=== PATIENT | male | born 1950 | race Caucasian/White ===

== ENCOUNTER → 2018-05-29 | Day surgery (SDC) | payer MEDICARE, OTHER ==
[2018-05-28 12:21] LABS: BASOPHILS # (AUTO) 0.1 (0.0-0.1); BASOPHILS % 0.6 % (0.0-1.0); EOSINOPHILS # (AUTO) 0.3 (0.0-0.4); EOSINOPHILS % 3.6 % (0.0-6.0); HEMATOCRIT 40.2 % (38.2-49.6); HEMOGLOBIN 13.5 g/dL (14.0-18.0); LYMPHOCYTES # (AUTO) 3.6 (1.0-3.2); LYMPHOCYTES % 40.5 % (18.0-39.1); MEAN CORPUSCULAR HEMOGLOBIN 31.4 pg (28-32); MEAN CORPUSCULAR HGB CONC 33.6 g/dL (31-35); MEAN CORPUSCULAR VOLUME 93.5 fL (81-99); MONOCYTES # (AUTO) 0.7 (0.2-0.8); MONOCYTES % 8.1 % (4.4-11.3); NEUTROPHILS # (AUTO) 4.2 (2.1-6.9); PLATELET COUNT 265 x10e3/uL (140-360); RED CELL DISTRIBUTION WIDTH 14.2 % (11.7-14.4)
[~2018-05-29] MED LIST: ACEBUTOLOL HCL200 MG PO; ACTOS15 MG PO; ALLEGRA ALLERG180 MG PO; ALLOPURINOL300 MG PO; ASPIR 8181 MG PO; AZELASTINE HCL6 ML; CRESTOR10 MG PO; DEXILANT60 MG PO; DEXTROSE 5% 250ML 250 ML IV ONE; DYMISTA NASAL S23 GM; FENTANYL CITRATE/PF 100MCG/2 ML INJ ONE; FLOMAX0.4 MG PO; FLUTICASONE PRO16 GM; LIDOCAINE HCL 2% LOCAL INJ 5 ML SDV VIAL INJ ONE; METFORMIN HCL500 MG PO; MIDAZOLAM HCL 2 MG/2 ML VIAL ONE; NEXIUM20 MG PO; NORVASC5 MG PO; PLAVIX75 MG PO; PRILOSEC OTC20 MG PO; PROPOFOL IV EMULSION 10 MG/ML 20 ML VIAL ONE; SUCRALFATE1 GM PO; TRICOR145 MG PO; XANAX2 MG PO; ZYRTEC10 MG PO
--- NOTE | 2018-05-29 15:45 | Operative Report ---
DATE OF PROCEDURE: May 29, 2018 REFERRING PHYSICIAN: Dr. Macario Grimm PROCEDURE PERFORMED: Esophagogastroduodenoscopy with biopsies. INDICATIONS FOR EGD: Upper abdominal pain. MEDICATION: Patient was done under MAC. Please see anesthesiologist's note. PROCEDURE: With the patient in the left lateral decubitus position, the flexible fiberoptic Olympus gastroscope was introduced into the esophagus under direct visualization without any difficulty. There was some patchy erythema noted in the distal esophagus. The scope was then advanced with ease into the stomach. Mucosa overlying the antrum and the body revealed some patchy erythema and mild to moderate edema, and biopsies were obtained and sent to stain for H. pylori. Multiple hyperplastic-appearing polyps were noted in the antrum and the body, and some were partially excised with cold biopsy forceps. Pylorus appeared to be of normal contour and shape. It was intubated with ease, and the scope was advanced all the way to the 2nd portion of the duodenum. The scope was then withdrawn slowly. Mucosa overlying the proximal 2nd portion and the duodenal bulb appeared to be within normal limits. The scope was then withdrawn back into the stomach and retroflexed. The mucosa overlying the fundus appeared to be within normal limits. An intact Carlotta fundoplication was noted in the retroflexed position. The scope was then straightened out. It was subsequently withdrawn. Patient tolerated the procedure well. IMPRESSION 1. Distal esophagitis, mild. 2. Gastritis, biopsied. Biopsies sent to stain for H. pylori. 3. Gastric polyps, hyperplastic-appearing, antrum and body, some partially excised with cold biopsy forceps. PLAN: Follow up histology. Continue Dexilant 60 mg 1 p.o. a.c. b.i.d. Job#: [id number] cc:MACARIO GRIMM MD
== END | disposition home or self-care (01) ==
LOC: OR 12:29
PROVIDERS: ATTEND Internal Medicine Gastroenterology
DX: K29.50 Unspecified chronic gastritis without bleeding (principal); K31.7 Polyp of stomach and duodenum; K20.9 Esophagitis, unspecified; Z98.890 Other specified postprocedural states; E11.9 Type 2 diabetes mellitus without complications; K21.9 Gastro-esophageal reflux disease without esophagitis; K25.9 Gastric ulcer, unspecified as acute or chronic, without hemorrhage or perforation; N20.0 Calculus of kidney; I10 Essential (primary) hypertension; E78.5 Hyperlipidemia, unspecified; I25.10 Atherosclerotic heart disease of native coronary artery without angina pectoris; Z88.0 Allergy status to penicillin; Z88.2 Allergy status to sulfonamides; Z01.810 Encounter for preprocedural cardiovascular examination; Z01.812 Encounter for preprocedural laboratory examination; Z79.82 Long term (current) use of aspirin; Z68.36 Body mass index [BMI] 36.0-36.9, adult; Z95.5 Presence of coronary angioplasty implant and graft
CPT/HCPCS: 36415 ×2; 43239; 82948; 85025; 88304; 88305; 88312; 93005; J2001; J2250

== ENCOUNTER → 2018-09-16 | Outpatient (CLI) | payer MEDICARE, OTHER ==
[~2018-09-16] MED LIST changes: -DEXTROSE 5% 250ML 250 ML IV ONE; -FENTANYL CITRATE/PF 100MCG/2 ML INJ ONE; -LIDOCAINE HCL 2% LOCAL INJ 5 ML SDV VIAL INJ ONE; -MIDAZOLAM HCL 2 MG/2 ML VIAL ONE; -PROPOFOL IV EMULSION 10 MG/ML 20 ML VIAL ONE
--- NOTE | 2018-09-16 18:35 | Diagnostic Imaging Report ---
EXAM: Complete Abdominal Ultrasound INDICATION: ^FATTY LIVER COMPARISON: None. TECHNIQUE: Transverse and longitudinal images of the upper abdomen were obtained. FINDINGS: Limited by body habitus and bowel gas. Liver: Size: 21.6 cm in the right midclavicular line, enlarged Appearance: Increased echogenicity, smooth contour Mass: No focal masses Spleen: Size: 13.5 cm in length, enlarged Echogenicity: Normal Mass: No focal masses Gallbladder: Surgically absent. Bile Ducts: Intrahepatic Ducts: No dilatation Extrahepatic Ducts: Common bile duct measures 0.5 cm, no dilatation Pancreas: Limited evaluation due to bowel gas. Right Kidney: Size: 13.4 cm Echogenicity: Normal Parenchymal thickness: Normal Collecting System: No hydronephrosis Stone: None Cyst/Mass: 3.3 x 3.2 x 3.6 cm midpole cyst. Left Kidney: Size: 13.1 cm Echogenicity: Normal Parenchymal thickness: Normal Collecting System: No hydronephrosis Stone: None Cyst/Mass: 2.2 cm midpole cyst. 2.1 cm mid/inferior pole cyst. Vessels: Aorta: Not well visualized due to bowel gas. Inferior Vena Cava: Not well visualized. Main Portal Vein: 1.4 cm, normal size with hepatopetal flow. Free Fluid: No ascites or pleural effusion IMPRESSION: Enlarged steatotic liver. Splenomegaly. Bilateral renal cysts. Signed by: Dr. Filippo Camara MD on 09/16/2018 6:31 PM
== END ==
LOC: US 16:49
PROVIDERS: ATTEND Internal Medicine Gastroenterology
DX: K76.0 Fatty (change of) liver, not elsewhere classified (principal)
CPT/HCPCS: 76700

== ENCOUNTER 2019-02-07 01:39 | Inpatient (IN) | payer MEDICARE, OTHER ==
[2019-02-07] VITALS (7 sets, daily range): BP systolic 118–155; BP diastolic 58–71
[~2019-02-07] VITALS: Ht 188 cm; Wt 126.1 kg
--- OUTSIDE RECORDS SUMMARY | 2019-02-07 01:41 | XMS REPORT | Clinical Summary ---
Author Author [facility] Organization [place] [facility] Address Unknown Phone Unavailable Care Team Providers Care Dictaphone Transcriber Name Role Phone Macario Grimm MD PCP Unavailable Allergies Comments Active Allergy Reactions Severity Noted Date Penicillin G Swelling 08/08/2016 Sulfabenzamide Hives 08/08/2016 Medications End Date Status Medication Sig Dispensed Refills Start Date Active acebutolol (SECTRAL) 400 0 MG capsule 6 Active allopurinol (ZYLOPRIM) 0 300 MG tablet 6 Active TRICOR 145 mg tablet 0 6 Active metFORMIN (GLUCOPHAGE) 0 500 MG tablet 6 Active fluticasone (FLONASE) 50 0 mcg/actuation nasal spray 6 Active ALPRAZolam (XANAX) 2 MG 0 tablet 6 Active azelastine (ASTELIN) 137 USE 2 SPRAYS 11 mcg (0.1 %) nasal spray IEN BID FOR 6 ALLERGIES Active fexofenadine (BIN) Take 180 mg 0 180 MG tablet by mouth daily. Active esomeprazole magnesium Take by mouth 0 22.3 mg capsule,delayed 2 (two) times release(DR/EC) a day. Active HYDROcodone-acetaminophen Take 1 tablet 0 (NORCO) 10-325 mg per by mouth tablet every 6 (six) hours as needed for moderate pain. Active sucralfate (CARAFATE) 1 TAKE 1 TABLET 360 tablet 3 gram tabletIndications: FOUR TIMES A 8 Epigastric pain, DAY Generalized abdominal pain 09/01/2018 Discontinued sucralfate (CARAFATE) 1 Take 1 tablet 360 tablet 3 gram tabletIndications: (1 g total) 7 Epigastric pain, by mouth 4 Generalized abdominal (four) times pain a day for 280 days. Active Problems Problem Noted Date Chest pain in adult 07/09/2017 Generalized abdominal pain 08/08/2016 Epigastric pain GERD (gastroesophageal reflux disease) Gastritis Gastric polyps Encounters Care Team Description Date Type Specialty Emmanuel Dietz MD Epigastric pain; Generalized abdominal pain 09/01/2018 Refill Gastroenterology Emmanuel Dietz MD Gastroesophageal reflux disease, esophagitis presence not specified; Epigastric pain; Generalized abdominal pain; Gastric polyps; Gastritis without bleeding, unspecified chronicity, unspecified gastritis type 03/08/2018 Hospital Radiology Encounter Emmanuel Dietz MD Gastroesophageal reflux disease, esophagitis presence not specified (Primary Dx); Epigastric pain; Generalized abdominal pain; Gastric polyps; Gastritis without bleeding, unspecified chronicity, unspecified gastritis type 02/28/2018 Office Visit Gastroenterology Wendy Prado MA 02/28/2018 Documentation Gastroenterology after 02/06/2018 Family History Relation Name Status Comments Father Mother Social History Date Tobacco Use Types Packs/Day Years Used Never Smoker Smokeless Tobacco: Never Used Alcohol Use Drinks/Week oz/Week Comments No Sex Assigned at Date Recorded Not on file Industry Job Start Date Occupation Not on file Not on file Not on file Travel End Travel History Travel Start No recent travel history available. Last Filed Vital Signs Time Taken Vital Sign Reading 03/08/2018 10:55 AM CDT Blood Pressure 165/81 03/08/2018 10:55 AM CDT Pulse 65 02/28/2018 2:33 PM CDT Temperature 36.8 C (98.3 F) 03/08/2018 10:55 AM CDT Respiratory Rate 18 - Oxygen Saturation - - Inhaled Oxygen - Concentration 03/08/2018 10:46 AM CDT Weight 132 kg (290 lb) 03/08/2018 10:46 AM CDT Height 188 cm (6' 2") 03/08/2018 10:46 AM CDT Body Mass Index 37.23 Plan of Treatment Health Maintenance Due Date Last Done Comments COLON CANCER SCREENING 2000 SHINGLES VACCINES (#1) 2000 65+ PNEUMOCOCCAL VACCINE 2015 (1 of 2 - PCV13) PNEUMOCOCCAL 2015 POLYSACCHARIDE VACCINE AGE 65 AND OVER INFLUENZA VACCINE 05/22/2019 Procedures Comments Procedure Name Priority Date/Time Associated Diagnosis MRI ABDOMEN W WO CONTRAST Routine 03/08/2018 Gastroesophageal reflux 11:34 AM CDT disease, esophagitis presence not specified Epigastric pain Generalized abdominal pain Gastric polyps Gastritis without bleeding, unspecified chronicity, unspecified gastritis type POC CREATININE Routine 03/08/2018 11:04 AM CDT ESTIMATED GFR Routine 03/08/2018 11:04 AM CDT LIPASE LEVEL Routine 02/28/2018 Gastroesophageal reflux 3:10 PM CDT disease, esophagitis presence not specified Epigastric pain Generalized abdominal pain Gastric polyps Gastritis without bleeding, unspecified chronicity, unspecified gastritis type AMYLASE LEVEL Routine 02/28/2018 Gastroesophageal reflux 3:10 PM CDT disease, esophagitis presence not specified Epigastric pain Generalized abdominal pain Gastric polyps Gastritis without bleeding, unspecified chronicity, unspecified gastritis type HEPATIC FUNCTION PANEL Routine 02/28/2018 Gastroesophageal reflux 3:10 PM CDT disease, esophagitis presence not specified Epigastric pain Generalized abdominal pain Gastric polyps Gastritis without bleeding, unspecified chronicity, unspecified gastritis type CBC HEMOGRAM Routine 02/28/2018 Gastroesophageal reflux 3:10 PM CDT disease, esophagitis presence not specified Epigastric pain Generalized abdominal pain Gastric polyps Gastritis without bleeding, unspecified chronicity, unspecified gastritis type after 02/06/2018 Results * MRI Abdomen W Wo Contrast (03/08/2018 11:34 AM CDT) Narrative Performed At EXAMINATION:MRI ABDOMEN W WO CONTRAST HM [facility] CLINICAL HISTORY:K21.9 Gastro-esophageal reflux disease without esophagitis, R10.13 Epigastric pain, Upper abdominal painUmbilical herniaVentral hernia repair TECHNIQUE: Multiplanar multisequence MR images of the abdomen were obtained pre- and post dynamic intravenous administration of Gadolinium. COMPARISON:MRI dated February 24, 2010 IMPRESSION: 1.Liver is steatotic but normal in contour. There is no hepatic mass. 2.The spleen, pancreas, adrenals are within normal limits. 3.Gallbladder is surgically absent. There is no biliary dilatation. 4.Bilateral renal cysts are benign in appearance, although several are hemorrhagic. These remain Bosniak category 2. These measure up to 3 cm in size. 5.The abdominal aorta is normal in caliber. There is no regional adenopathy. No suspicious osseous lesions are seen. [facility]-[id number] Procedure Note Interface, Radiology Results Incoming - 03/08/2018 2:50 PM CDT EXAMINATION: MRI ABDOMEN W WO CONTRAST CLINICAL HISTORY: K21.9 Gastro-esophageal reflux disease without esophagitis, R10.13 Epigastric pain, Upper abdominal painUmbilical herniaVentral hernia repair TECHNIQUE: Multiplanar multisequence MR images of the abdomen were obtained pre- and post dynamic intravenous administration of Gadolinium. COMPARISON: MRI dated February 24, 2010 IMPRESSION: 1. Liver is steatotic but normal in contour. There is no hepatic mass. 2. The spleen, pancreas, adrenals are within normal limits. 3. Gallbladder is surgically absent. There is no biliary dilatation. 4. Bilateral renal cysts are benign in appearance, although several are hemorrhagic. These remain Bosniak category 2. These measure up to 3 cm in size. 5. The abdominal aorta is normal in caliber. There is no regional adenopathy. No suspicious osseous lesions are seen. [facility]-[id number] Performing Organization Address City/[facility]/Zipcode Phone Number [facility] [address] [place] [address] * Estimated GFR (03/08/2018 11:04 AM CDT) GFR Non Af Amer 50 (A) mL/min/1.73 m2 [facility] DEPARTMENT OF PATHOLOGY AND GENOMIC MEDICINE GFR Af Amer 61 mL/min/1.73 m2 [facility] DEPARTMENT OF Comment: PATHOLOGY AND Chronic kidney disease: <60 GENOMIC MEDICINE mL/min/1.73m2 Kidney failure: <15 mL/min/1.73m2 The estimated GFR is calculated from the IDMS-traceable Modification of Diet in Renal Disease Equation. The accuracy of the calculation is poor when the creatinine is normal. Calculated values >90 mL/min/1.73m2 are not reported. This equation has not been validated in children (<18 years), women, the elderly (>70 years), or ethnic groups other than Caucasians and Americans. Specimen Blood Performing Organization Address City/[facility]/Zipcode Phone Number [facility] [address] [place] [phone] PATHOLOGY AND GENOMIC MEDICINE * POC creatinine (03/08/2018 11:04 AM CDT) POC creatinine 1.4 (H) 0.7 - 1.2 mg/dl [facility] DEPARTMENT OF Comment: PATHOLOGY AND Meter ID: [id number] GENOMIC MEDICINE [facility] Family [facility] Professor: Parkerasimearnest Ron Specimen Blood Performing Organization Address City/[facility]/Zipcode Phone Number [facility] DEPARTMENT OF [address] [place] [address] PATHOLOGY AND GENOMIC MEDICINE * CBC hemogram (02/28/2018 3:10 PM CDT) WBC 10.5 3.8 - 10.8 Thousand/uL [employer] [place] RBC 4.65 4.20 - 5.80 Million/uL [facility] [place] HGB 14.4 13.2 - 17.1 g/dL [facility] [place] HCT 41.1 38.5 - 50.0 % [facility] [place] MCV 88.4 80.0 - 100.0 fL [facility] [place] MCH 31.0 27.0 - 33.0 pg [facility] [place] MCHC 35.0 32.0 - 36.0 g/dL [facility] [place] RDW 12.8 11.0 - 15.0 % [facility] [place] Platelet count 313 140 - 400 Thousand/uL [employer] [place] MPV 11.4 7.5 - 12.5 fL [facility] [place] Specimen Blood Narrative Performed At FASTING:NO QUEST FASTING: NO Resulting Agency Comment Performing Organization Information: Site ID: [id number] Name: [facility] Address: [address] [place], [place] [id number] Director: Verna Arreaga Performing Organization Address [facility] [place] [address] * Lipase level (02/28/2018 3:10 PM CDT) Lipase 52 7 - 60 U/L [employer] [place] Specimen Blood Narrative Performed At FASTING:NO QUEST FASTING: NO Resulting Agency Comment Performing Organization Information: Site ID: [id number] Name: [facility] Address: [address] [place] [address] Director: Verna Arreaga Performing Organization Address [facility] [place] [address] * Amylase level (02/28/2018 3:10 PM CDT) Amylase 56 21 - 101 U/L [facility] Specimen Blood Narrative Performed At FASTING:NO QUEST FASTING: NO Resulting Agency Comment Performing Organization Information: Site ID: [id number] Name: [facility] Address: [address] [place] [id number] Director: Verna Arreaga Performing Organization Address City/[facility] Phone Number [facility] [employer] [place] [address] [place] [phone] * Hepatic function panel (02/28/2018 3:10 PM CDT) Protein 7.3 6.1 - 8.1 g/dL [facility] Albumin, S 4.2 3.6 - 5.1 g/dL [facility] [employer] [place] Globulin, total 3.1 1.9 - 3.7 g/dL (calc) [facility] Albumin/globulin ratio 1.4 1.0 - 2.5 (calc) [facility] Total bilirubin 0.5 0.2 - 1.2 mg/dL [facility] Bilirubin direct 0.1 < OR=0.2 mg/dL [employer] [place] Bilirubin, indirect 0.4 0.2 - 1.2 mg/dL (calc) [facility] Alkaline phosphatase 36 (L) 40 - 115 U/L [facility] AST 16 10 - 35 U/L [facility] ALT 17 9 - 46 U/L [employer] [place] Specimen Blood Narrative Performed At FASTING:NO QUEST FASTING: NO Resulting Agency Comment Performing Organization Information: Site ID: [id number] Name: [facility] Address: [address] [place] [phone] Director: Verna Arreaga Performing Organization Address City/State/[facility] Phone Number [facility] [place] [address] [place] [address] after 02/06/2018 Insurance Payer Benefit Subscriber ID Type Phone Address Plan / Group MEDICARE MEDICARE xxxxxxxxxx Medicare [place], [place] PART A AND B AETNA AETNA PPO xxxxxxxxxx PPO OPEN CHOICE Advance Directives Patient has advance care planning documents on file. For more information, duglas limon contact: Dallin Balderas [address] [place] [address]
[2019-02-07] MEDS ORDERED: LEVOFLOXACIN 500MG/D5W 100ML 100 ML IV STA (01:54)
[2019-02-07] MEDS ORDERED: ACETAMINOPHEN 325 MG TAB PO ONE (02:00)
[2019-02-07] MEDS ORDERED: SODIUM CHLORIDE 0.9% 1000ML 1,000 ML IV ONE ×2 (02:00→03:15)
[2019-02-07 02:53] LABS: RED BLOOD COUNT 4.62 x10e6/uL (4.3-5.7)
[2019-02-07 02:54] LABS: HEMATOCRIT 42.7 % (38.2-49.6); HEMOGLOBIN 14.4 g/dL (14.0-18.0); MEAN CORPUSCULAR HEMOGLOBIN 31.2 pg (28-32); MEAN CORPUSCULAR HGB CONC 33.7 g/dL (31-35); MEAN CORPUSCULAR VOLUME 92.4 fL (81-99); PLATELET COUNT 325 x10e3/uL (140-360); RED CELL DISTRIBUTION WIDTH 13.5 % (11.7-14.4)
[2019-02-07 02:55] LABS: BASOPHILS % 0.3 % (0.0-1.0); EOSINOPHILS % 0.3 % (0.0-6.0); LYMPHOCYTES % 5.5 % (18.0-39.1); MONOCYTES # (AUTO) 0.8 (0.2-0.8); MONOCYTES % 4.5 % (4.4-11.3); NEUTROPHILS # (AUTO) 16.3 (2.1-6.9)
[2019-02-07] MEDS ORDERED: SODIUM CHLORIDE 0.9% 1000ML 1,000 ML ONE (02:55)
[2019-02-07 02:56] LABS: BASOPHILS # (AUTO) 0.5 (0.0-0.1); EOSINOPHILS # (AUTO) 0.5 (0.0-0.4)
--- NOTE | 2019-02-07 03:02 | Diagnostic Imaging Report ---
EXAMINATION: CHEST SINGLE (PORTABLE) COMPARISON: Chest x-ray 06/27/2017 INDICATION: ^fever ^[id number] ^0222 ^Y DISCUSSION: Frontal view of the chest obtained at 0228 hours. HEART AND MEDIASTINUM: The cardiomediastinal silhouette is unremarkable. LINES: None. LUNGS: Right infrahilar airspace opacity has developed. Left lung is clear. No additional thickening. PLEURA: No pleural effusion or pneumothorax. BONES AND SOFT TISSUES: No focal osseous lesion. The soft tissues are normal. IMPRESSION: Right infrahilar airspace opacity may represent pneumonia or atelectasis. Signed by: Dr. Konstantin Roldan MD on 02/07/2019 2:59 AM
[2019-02-07 03:06] LABS: ANION GAP 16.6 mmol/L (8-16); POTASSIUM 4.6 mmol/L (3.5-5.1)
[2019-02-07 03:09] LABS: CALCIUM 9.5 mg/dL (8.4-10.2)
[2019-02-07 03:10] LABS: ALBUMIN 3.7 g/dL (3.5-5.0); ALBUMIN/GLOBULIN RATIO 0.9 (0.8-2.0)
[2019-02-07] MEDS ORDERED: ONDANSETRON HCL INJ 2MG/ML 2ML 2 MG/ML VIAL IV PRN (03:45)
[2019-02-07] MEDS ORDERED: DEXTROSE 50% SYRINGE 50 ML IV PRN (03:45)
[2019-02-07 03:48] LABS: CREATININE, SERUM 1.6 mg/dL (0.9-1.3)
[2019-02-07] MEDS: LEVOFLOXACIN 750MG/D5W 150ML 150 ML IV SCH (03:52)
--- OUTSIDE RECORDS SUMMARY | 2019-02-07 03:52 | XMS REPORT | Clinical Summary ---
Author Author [facility] Organization [place] [facility] Address Unknown Phone Unavailable Care Team Providers Care Psych Tech Name Role Phone Macario Grimm MD PCP [...] adenopathy. No suspicious osseous lesions are seen. [facility]-[id number] Procedure Note Interface, Radiology Results Incoming - [...] adenopathy. No suspicious osseous lesions are seen. [facility]-[id number] Performing Organization Address City/[facility]/Zipcode Phone Number [facility] [address] [place] [address] * Estimated GFR (03/08/2018 11:04 AM CDT) GFR Non Af Amer 50 (A) mL/min/1.73 m2 [facility] DEPARTMENT OF PATHOLOGY AND GENOMIC MEDICINE GFR Af Amer 61 mL/min/1.73 m2 [facility] DEPARTMENT OF Comment: PATHOLOGY AND Chronic kidney [...] and Americans. Specimen Blood Performing Organization Address City/[facility]/Zipcode Phone Number [facility] OF [address] [place] [phone] PATHOLOGY AND GENOMIC MEDICINE * POC creatinine (03/08/2018 11:04 AM CDT) POC creatinine 1.4 (H) 0.7 - 1.2 mg/dl [facility] DEPARTMENT OF Comment: PATHOLOGY AND Meter ID: [id number] GENOMIC MEDICINE Hotel Desk Clerk: Parkerasimearnest Ron Specimen Blood Performing Organization Address City/[facility]/Zipcode Phone Number [facility] DEPARTMENT OF [address] [place] [phone] PATHOLOGY AND GENOMIC MEDICINE * CBC hemogram (02/28/2018 3:10 PM CDT) WBC 10.5 3.8 - 10.8 Thousand/uL [employer] [place] RBC 4.65 4.20 - 5.80 Million/uL [facility] [place] HGB 14.4 13.2 - 17.1 g/dL [facility] [place] HCT 41.1 38.5 - 50.0 % [employer] [facility] [place] MCV 88.4 80.0 - 100.0 fL [employer] [facility] [place] MCH 31.0 27.0 - 33.0 pg [facility] [place] MCHC 35.0 32.0 - 36.0 g/dL [facility] [place] RDW 12.8 11.0 - 15.0 % [facility] [place] Platelet count 313 140 - 400 Thousand/uL [employer] [facility] [place] MPV 11.4 7.5 - 12.5 fL [employer] [facility] [place] Specimen Blood Narrative Performed At FASTING:NO QUEST FASTING: NO Resulting Agency Comment Performing Organization Information: Site ID: [id number] Name: [facility] Address: [address] [place], [place] [id number] Director: Verna Arreaga Performing Organization Address [facility] [place] [address] * Lipase level (02/28/2018 3:10 PM CDT) Lipase 52 7 - 60 U/L [employer] [facility] [place] Specimen Blood Narrative Performed At FASTING:NO QUEST FASTING: NO Resulting Agency Comment Performing Organization Information: Site ID: [id number] Name: [facility] Address: [address] [place] [address] Director: Verna Arreaga Performing Organization Address [facility] Phone [place] [address] * Amylase level (02/28/2018 3:10 PM CDT) Amylase 56 21 - 101 U/L [facility] Specimen Blood Narrative Performed At FASTING:NO QUEST FASTING: NO Resulting Agency Comment Performing Organization Information: Site ID: [id number] Name: [facility] Address: [address] [place] [phone] Director: Verna Arreaga Performing Organization Address City/[facility] Cent[facility] Phone Number [facility] [employer] [place] [address] [place] [phone] * Hepatic function panel (02/28/2018 3:10 PM CDT) Protein 7.3 6.1 - 8.1 g/dL [facility] Albumin, S 4.2 3.6 - 5.1 g/dL [facility] [employer] [place] Globulin, total 3.1 1.9 - 3.7 g/dL (calc) [facility] Albumin/globulin ratio 1.4 1.0 - 2.5 (calc) [facility] Total bilirubin 0.5 0.2 - 1.2 mg/dL [employer] [facility] Bilirubin direct 0.1 < OR=0.2 mg/dL [employer] [place] Bilirubin, indirect 0.4 0.2 - 1.2 mg/dL (calc) [facility] Alkaline phosphatase 36 (L) 40 - 115 U/L [facility] AST 16 10 - 35 U/L [facility] ALT 17 9 - 46 U/L [employer] [place] Specimen Blood Narrative Performed At FASTING:NO QUEST FASTING: NO Resulting Agency Comment Performing Organization Information: Site ID: [id number] Name: [facility] Address: [address] [place] [phone] Director: Verna Arreaga Performing Organization Address City/State/[facility] Centercode Phone Number [facility] [place] [address] [place] [address] after 02/06/2018 Insurance Payer Benefit Subscriber ID Type Phone Address Plan / Group MEDICARE MEDICARE xxxxxxxxxx Medicare [place], [place] PART A AND B AETNA AETNA PPO xxxxxxxxxx PPO OPEN CHOICE Advance Directives Patient has advance care planning documents on file. For more information, duglas limon contact: Dallin Balderas [address] [place] [address]
[2019-02-07] MEDS: SODIUM CHLORIDE 0.9% 1000ML 1,000 ML IV SCH ×3 (04:20→22:35)
--- NOTE | 2019-02-07 04:30 | NUR ---
Admitted to [facility] via w/c. Alert and orient to person, place, time, and situation. Skin warm, dry, and intact. Denies pain at this time. Denies SOB. Lungs CTA RUL, RML, VERONICA; diminished RLL, LLL. cap refill <3 secs. 18g IV RAC, patent NS @125ml/hr. Last BM 02/06. Urin dark roberto, cloudy. denies dysuria. Abd round and distended, active bowel sounds x4 quads. Oriented to room. call alanis within reach. Bed low and locked. Will continue to monitor.
[2019-02-07] MEDS ORDERED: DICYCLOMINE HCL10 MG PO (04:52)
[2019-02-07 05:16] LABS: CLARITY,URINE TURBID (CLEAR); COLOR,URINE AMBER (YELLOW); KETONES,URINE NEGATIVE (NEGATIVE); LEUKOCYTE ESTERASE ,URINE 1+ (NEGATIVE); NITRITE,URINE POSITIVE (NEGATIVE); PROTEIN,URINE DIPSTICK 1+ (NEGATIVE); URINE UROBILINOGEN 0.2 mg/dL (0.2 - 1)
[2019-02-07 05:17] LABS: BILIRUBIN,URINE 1+ (NEGATIVE)
[2019-02-07 05:18] LABS: BACTERIA,URINE MANY /HPF; EPITHELIAL CELLS,URINE FEW /LPF; RBC,URINE >50 /HPF (0-5); WBC,URINE (MAN) 21-50 /HPF (0-5)
--- NOTE | 2019-02-07 07:00 | NUR ---
PATIENT IN STABLE CONDITION WITH NO S/S OF RESPIRATORY DISTRESS. NO PAIN VOICED. IV FLUIDS INFUSING. BED ALARM ON. CALL LIGHT IS WITHIN REACH, PATIENT INSTRUCTED TO CALL FOR ASSISTANCE NEEDED.
[2019-02-07] MEDS: INSULIN REGULAR, HUMAN 100 UNIT/1 ML 3ML VIAL SQ SCH ×4 (07:30→21:00)
[2019-02-07 08:10] LABS: CREATINE KINASE 78 IU/L (30-200)
[2019-02-07] MEDS ORDERED: NORCO 10-325 T1 EACH PO (09:17)
[2019-02-07] MEDS ORDERED: ALPRAZOLAM1 MG PO (09:17)
[2019-02-07] MEDS ORDERED: DICYCLOMINE HCL20 MG PO (09:19)
--- NOTE | 2019-02-07 09:51 | NUR ---
CALL PLACED OUT TO DR. LAY REGARDING PATIENT HOME MEDICATION OF DEXILANT AND DICYCLOMINE UPON PATIENT'S REQUEST- AWAITING CALLBACK.
--- NOTE | 2019-02-07 10:08 | NUR ---
RECEIVED CALLBACK FROM DR. GUILLERMO FUNG TO START DEXILANT AND DICYCLOMINE
[2019-02-07] MEDS: DICYCLOMINE HCL 20 MG TAB PO SCH ×2 (10:49→17:55)
--- NOTE | 2019-02-07 11:44 | NUR ---
CALL PLACED OUT TO DR. LAY UPON PATIENT'S REQUEST FOR PYRIDIUM- AWAITING CALLBACK.
[2019-02-07] MEDS: DEXLANSOPRAZOLE 60 MG PO SCH (12:00)
[2019-02-07] MEDS ORDERED: PANTOPRAZOLE SOD 40 MG TABEC PO SCH (12:00)
[2019-02-07] MEDS ORDERED: OZEMPIC SQ (12:27)
[2019-02-07 12:32] LABS: CREATINE KINASE 68 IU/L (30-200)
[2019-02-07] MEDS: PHENAZOPYRIDINE HCL 100 MG TAB PO SCH ×2 (13:17→17:56)
--- NOTE | 2019-02-07 13:46 | Diagnostic Imaging Report ---
EXAMINATION: CHEST 2 VIEWS INDICATION: Pneumonia ^pna ^[id number] ^1315 ^N COMPARISON: February 07, 2019 at 0228 hours FINDINGS: TUBES and LINES: None. LUNGS: Lungs are well inflated. Mild perihilar peribronchial hazy opacity could be due to bronchitis. There is no evidence of pneumonia or pulmonary edema. PLEURA: No pleural effusion or pneumothorax. HEART AND MEDIASTINUM: The cardiomediastinal silhouette is unremarkable. BONES AND SOFT TISSUES: No acute osseous lesion. Soft tissues are unremarkable. UPPER ABDOMEN: No free air under the diaphragm. IMPRESSION: Mild perihilar peribronchial hazy opacity could be due to bronchitis. Signed by: Dr. Nino Mora M.D. on 02/07/2019 1:43 PM
[2019-02-07] MEDS: HYDROCODONE/APAP 10MG-325MG TAB PO SCH (14:05)
[2019-02-07] MEDS: SUCRALFATE 1 GM TAB PO SCH ×3 (14:05→21:30)
[2019-02-07] MEDS: ACEBUTOLOL HCL 200 MG CAP PO SCH (17:55)
--- NOTE | 2019-02-07 19:20 | NUR ---
PATIENT IS IN STABLE CONDITION WITH NO S/S OF RESPIRATORY DISTRESS- NO PAIN VOICED. IV FLUIDS INFUSING. THE PATIENT'S CALL LIGHT IS WITHIN REACH AND PATIENT HAS BEEN INSTRUCTED TO CALL FOR ASSISTANCE NEEDED. BEDSIDE REPORT GIVEN TO ONCOMING NURSE.
[2019-02-07 20:30] LABS: CREATINE KINASE MB 0.2 ng/mL (0-5.0)
[2019-02-07] MEDS: ALPRAZOLAM 1 MG TAB PO SCH (21:30)
[2019-02-07] MEDS: SIMVASTATIN 20 MG TAB PO SCH (21:31)
[2019-02-07] MEDS: TAMSULOSIN HCL 0.4 MG CAP PO SCH (21:31)
--- NOTE | 2019-02-07 21:49 | NUR ---
NO RESPIRATORY DISTRESS OBSERVED, PATIENT DENIES PAIN BUT C/O CHILLS. TEMPERATURE ASSESSED WITH READING OF 99.4. WILL CLOSELY MONITOR.
[2019-02-07] MEDS: ACETAMINOPHEN 325 MG TAB PO PRN (22:35)
[2019-02-08] VITALS (7 sets, daily range): BP systolic 119–169; BP diastolic 50–79
[2019-02-08] MEDS: DEXLANSOPRAZOLE 60 MG PO SCH ×2 (00:36→11:58)
[2019-02-08] MEDS: HYDROCODONE/APAP 10MG-325MG TAB PO SCH ×2 (00:37→06:57)
--- NOTE | 2019-02-08 00:39 | NUR ---
PATIENT C/O PAIN TO THE BACK WITH PAIN SCORE #7, MEDICATED WITH NORCO 1TAB ORDERED. HE ALSO C/O BURNING SENSATION TO THE EYES, COOL TOWEL PROVIDED TO WIPE THE PATIENT'S FACE. CALL LIGHT WITHIN EASY REACH, HE'S INSTRUCTED TO CALL FOR ASSISTANCE NEEDED.
[2019-02-08] MEDS: ACETAMINOPHEN 325 MG TAB PO PRN ×3 (03:35→16:36)
[2019-02-08] MEDS: LEVOFLOXACIN 750MG/D5W 150ML 150 ML IV SCH (03:35)
--- NOTE | 2019-02-08 03:35 | NUR ---
PATIENT TEMPERATURE 100.8 ORALLY AND 102.2 AXILLARY. MEDICATED WITH IV ANTIBIOTIC AND TYLENOL ORDERED, ORAL FLUID ENCOURAGED AND THICK BLANKET REMOVED FROM THE PATIENT. HE'S ENCOURAGED TO REPOSITION ON HIS SIDE DUE TO LOWER BACK PAIN, CALL LIGHT AND URINAL WITHIN EASY REACH.
[2019-02-08 06:10] LABS: BASOPHILS % 0.3 % (0.0-1.0); EOSINOPHILS # (AUTO) 0.1 (0.0-0.4); EOSINOPHILS % 1.1 % (0.0-6.0); HEMATOCRIT 37.4 % (38.2-49.6); HEMOGLOBIN 12.2 g/dL (14.0-18.0); LYMPHOCYTES # (AUTO) 1.4 (1.0-3.2); LYMPHOCYTES % 10.3 % (18.0-39.1); MEAN CORPUSCULAR HEMOGLOBIN 30.6 pg (28-32); MEAN CORPUSCULAR HGB CONC 32.6 g/dL (31-35); MEAN CORPUSCULAR VOLUME 93.7 fL (81-99); MONOCYTES # (AUTO) 1.1 (0.2-0.8); MONOCYTES % 8.6 % (4.4-11.3); NEUTROPHILS # (AUTO) 10.6 (2.1-6.9); NEUTROPHILS % 79.3 % (38.7-80.0); PLATELET COUNT 227 x10e3/uL (140-360); RED BLOOD COUNT 3.99 x10e6/uL (4.3-5.7); RED CELL DISTRIBUTION WIDTH 13.8 % (11.7-14.4)
[2019-02-08 06:37] LABS: ALBUMIN 3.1 g/dL (3.5-5.0); ALBUMIN/GLOBULIN RATIO 0.9 (0.8-2.0); CALCIUM 8.7 mg/dL (8.4-10.2); CREATININE, SERUM 1.31 mg/dL (0.72-1.25)
[2019-02-08 06:58] LABS: ANION GAP 11.5 mmol/L (8-16)
--- NOTE | 2019-02-08 07:00 | NUR ---
PATIENT C/O BACK PAIN AND CHILLS, TEMPERATURE ASSESSED WITH RESULT OF 101.2 NORCO ADMINISTERED ORDERED, WILL NOTIFY THE ATTENDING PHYSICIAN REGARDING ELEVATED TEMPERATURE FOR INFECTIOUS DISEASE CONSULT.
--- NOTE | 2019-02-08 07:05 | NUR ---
ATTEMPTED TO ASSESS THE PATIENT'S BIOPSY AREA FOR REDNESS, SWELLING, OPEN AREA OR DRAINAGE BUT HE REFUSED TO HAVE THE AREA ASSESSED. CALL PLACE IN TO ATTENDING PHYSICIAN REGARDING THE ELEVATED TEMPERATURE, AWAITING CALL BACK FROM THE PHYSICIAN. CHANGE OF SHIFT REPORT GIVEN TO THE ONCOMING NURSE TO FOLLOW UP WITH THE PHYSICIAN.
[2019-02-08 07:06] LABS: POTASSIUM 3.5 mmol/L (3.5-5.1)
--- NOTE | 2019-02-08 07:10 | NUR ---
PATIENT IS IN STABLE CONDITION WITH NO S/S OF RESPIRATORY DISTRESS. PATIENT C/O BACK PAIN 02/28- RECENTLY RECEIVED NORCO. IV FLUIDS INFUSING. PATIENT REFUSED BED ALARM. CALL LIGHT IS WITHIN REACH, PATIENT INSTRUCTED TO CALL FOR ASSISTANCE NEEDED.
[2019-02-08] MEDS: INSULIN REGULAR, HUMAN 100 UNIT/1 ML 3ML VIAL SQ SCH ×4 (07:30→21:00)
[2019-02-08] MEDS: AZITHROMYCIN 500MG/NS 250 ML 250 ML IV SCH (08:20)
[2019-02-08] MEDS: ACEBUTOLOL HCL 200 MG CAP PO SCH ×2 (08:23→16:40)
[2019-02-08] MEDS: SUCRALFATE 1 GM TAB PO SCH ×4 (08:23→22:00)
[2019-02-08] MEDS: AMLODIPINE BESYLATE 10 MG TAB PO SCH (08:23)
[2019-02-08] MEDS: ASPIRIN 81 MG CHEW TAB PO SCH (08:23)
[2019-02-08] MEDS: PHENAZOPYRIDINE HCL 100 MG TAB PO SCH ×3 (08:23→17:00)
[2019-02-08] MEDS: DICYCLOMINE HCL 20 MG TAB PO SCH ×2 (08:23→16:34)
[2019-02-08] MEDS: FENOFIBRATE 145 MG TAB PO SCH (08:24)
[2019-02-08] MEDS: ALLOPURINOL 300 MG TAB PO SCH (08:25)
--- NOTE | 2019-02-08 10:09 | NUR ---
DR. LAY ON THE UNIT- INFORMED DR. LAY OF PATIENT'S ELEVATED TEMPERATURES FROM YESTERDAY EVENING AND TODAY. SPOKE WITH DR. LAY REGARDING SEPSIS SCREENING AND IV ANTIBIOTICS. SPOKE WITH DR. LAY REGARDING ID CONSULT-NO ORDER GIVEN FOR CONSULT; ORDER TO CALL DR. LAY WHEN SENSITIVITY RESULTS FROM URINE CULTURE.
[2019-02-08] MEDS: SODIUM CHLORIDE 0.9% 1000ML 1,000 ML IV SCH (14:01)
--- NOTE | 2019-02-08 16:45 | NUR ---
ROUNDED ON PATIENT- PATIENT HAVIND Addendum: 02/08/19 at 1646 by Sofia Grover RN ENTERED IN ERROR
--- NOTE | 2019-02-08 16:45 | NUR ---
ROUND ON PATIENT- PATIENT HAVING CHILLS AND TREMORS. RN ASSESSED PATIENT TEMP- TEMP OF 101.5. TYLENOL ADMINISTERED. DR. LAY CALLED AND INFORMED OF PATIENT'S CURRENT SITUATION- ORDER FOR STAT CONSULT OF DR. GODDARD AND STAT BLOOD CULTURES. CALL PLACED OUT TO Pablo MARTÍNEZ OF DR. GODDARD FOR STAT CONSULT- LEFT VOICE MAIL REGARDING CONSULT.
[2019-02-08] MEDS ORDERED: FUROSEMIDE INJ 10 MG/ML 4 ML VIAL IV NR (17:45)
[2019-02-08] MEDS ORDERED: ALBUTEROL/IPRATROPIUM 3 ML NEB NEB NR (17:45)
--- NOTE | 2019-02-08 19:17 | NUR ---
PATIENT IS IN STABLE CONDITION WITH NO S/S OF RESPIRATORY DISTRESS. NO PAIN VOICED. URINALS PROVIDED TO THE PATIENT. PATIENT REFUSED THE BED ALARM. CALL LIGHT IS WITHIN REACH, PATIENT INSTRUCTED TO CALL FOR ASSISTANCE NEEDED. BEDSIDE REPORT GIVEN TO ONCOMING NURSE.
--- NOTE | 2019-02-08 20:40 | NUR ---
PATIENT RESTING IN BED, NO ACUTE DISTRESS OBSERVED AND HE DENIES PAIN. CALL LIGHT WITHIN EASY REACH, HE'S INSTRUCTED TO CALL FOR ASSISTANCE NEEDED.
[2019-02-08] MEDS: ALPRAZOLAM 1 MG TAB PO SCH (22:00)
[2019-02-09] VITALS (8 sets, daily range): BP systolic 118–135; BP diastolic 56–77
[2019-02-09] MEDS: DEXLANSOPRAZOLE 60 MG PO SCH ×2 (00:41→11:32)
[2019-02-09] MEDS: HYDROCODONE/APAP 10MG-325MG TAB PO SCH ×2 (00:46→20:56)
--- NOTE | 2019-02-09 00:47 | NUR ---
ASSISTED PATIENT WITH ADLS, HE'S BACK IN BED FROM THE TOILET WITH CALL LIGHT IN EASY REACH. MEDICATED WITH NORCO 1TAB FOR PAIN TO THE LOWER BACK.
[2019-02-09] MEDS: LEVOFLOXACIN 750MG/D5W 150ML 150 ML IV SCH (03:37)
[2019-02-09] MEDS: ACETAMINOPHEN 325 MG TAB PO PRN ×2 (03:45→09:04)
--- NOTE | 2019-02-09 03:46 | NUR ---
PATIENT IS SHIVERING AND C/O BEEN COLD. TEMPERATURE ASSESSED WITH RESULT OF 101.7 ORALLY. A WARM BLANKET PROVIDED, TYLENOL ADMINISTERED FOR ELEVATED TEMPERATURE ORDERED. PATIENT DISCOURAGE FROM DRINKING ICE COLD WATER FOR NOW, WILL REASSESS THE TEMPERATURE.
--- NOTE | 2019-02-09 04:40 | NUR ---
TEMPERATURE REASSESSED WITH READING OF 101.4 PATIENT HAS STOPPED SHIVERING, BLANKET REMOVED ONLY THE SHEET LEFT ON THE PATIENT.
--- NOTE | 2019-02-09 07:15 | NUR ---
PATIENT IS IN STABLE CONDITION WITH NO S/S OF RESPIRATORY DISTRESS. URINAL AVAILABLE FOR PATIENT. CALL LIGHT IS WITHIN REACH, PATIENT INSTRUCTED TO CALL FOR ASSISTANCE NEEDED.
[2019-02-09] MEDS: INSULIN REGULAR, HUMAN 100 UNIT/1 ML 3ML VIAL SQ SCH ×4 (07:30→21:00)
--- NOTE | 2019-02-09 08:38 | NUR ---
CALL PLACED OUT TO DR. LAY AND TANYA P.Wm REGARDING POSITIVE BLOOD CULTURES AND URINE SENSITIVITY- AWAITING CALLBACK.
[2019-02-09] MEDS: SUCRALFATE 1 GM TAB PO SCH ×4 (09:04→20:56)
[2019-02-09] MEDS: FUROSEMIDE INJ 10 MG/ML 4 ML VIAL IV SCH (09:12)
[2019-02-09] MEDS: ASPIRIN 81 MG CHEW TAB PO SCH (09:13)
[2019-02-09] MEDS: FENOFIBRATE 145 MG TAB PO SCH (09:13)
[2019-02-09] MEDS: AMLODIPINE BESYLATE 10 MG TAB PO SCH (09:13)
[2019-02-09] MEDS: ALLOPURINOL 300 MG TAB PO SCH (09:13)
[2019-02-09] MEDS: AZITHROMYCIN 500MG/NS 250 ML 250 ML IV SCH (09:13)
[2019-02-09] MEDS: DICYCLOMINE HCL 20 MG TAB PO SCH ×2 (09:13→17:13)
[2019-02-09] MEDS: PHENAZOPYRIDINE HCL 100 MG TAB PO SCH (09:13)
[2019-02-09] MEDS: ACEBUTOLOL HCL 200 MG CAP PO SCH ×2 (09:13→17:42)
--- NOTE | 2019-02-09 11:01 | NUR ---
RECEIVED A CALL FROM DR. GUILLERMO CHAVIS TO [facility] AND CALL PHARMACY TO CONFIGURE DOSE AND FREQUENCY FOR AZACTAM. CALLED AND SPOKE WITH PHARMACIST- PHARMACIST WILL LOOK INTO THE DOSE AND FREQUENCY.
[2019-02-09] MEDS ORDERED: AZTREONAM 1 GM/NS 50 ML 50 ML IV SCH ×2 (11:15→19:30)
[2019-02-09] MEDS ORDERED: CEFTAZIDIME SOD 1 GM/NS 50ML 50 ML IV SCH (14:00)
[2019-02-09] MEDS ORDERED: CEFTAZIDIME 1 GM VIAL IV SCH (14:00)
--- NOTE | 2019-02-09 14:29 | NUR ---
PATIENT TOLERATED ANTIBIOTIC FORTAZ- NO S/S OF ALLERGIC REACTION.
--- NOTE | 2019-02-09 18:41 | NUR ---
RECEIVED CALL FROM DR. LAY - INFORMED DR. LAY OF PATIENT'S LAST TEMP 97.1 AND PATIENT'S CONDITION. NO NEW ORDER RECEIVED.
--- NOTE | 2019-02-09 19:10 | NUR ---
PATIENT IS IN STABLE CONDITION WITH NO S/S OF RESPIRATORY DISTRESS-NO PAIN VOICED. URINAL NEAR BEDSIDE. CALL LIGHT IS WITHIN REACH, PATIENT INSTRUCTED TO CALL FOR ASSISTANCE NEEDED. BEDSIDE REPORT GIVEN TO ONCOMING NURSE.
--- NOTE | 2019-02-09 20:15 | NUR ---
NO RESPIRATORY DISTRESS OBSERVED, DR GODDARD MADE ROUNDS AND HE SAW THE PATIENT, NEW ORDERS RECEIVED.
[2019-02-09] MEDS: TAMSULOSIN HCL 0.4 MG CAP PO SCH (20:56)
[2019-02-09] MEDS: CEFTRIAXONE SOD 1 GM/NS 50 ML 50 ML IV SCH (20:56)
[2019-02-09] MEDS: ALPRAZOLAM 1 MG TAB PO SCH (20:56)
[2019-02-09] MEDS: SIMVASTATIN 20 MG TAB PO SCH (20:56)
--- NOTE | 2019-02-09 23:00 | NUR ---
PATIENT OFF THE UNIT PER WHEELCHAIR TO RADIOLOGY FOR CT SCAN.
--- NOTE | 2019-02-09 23:20 | NUR ---
PATIENT BACK ON THE UNIT, CONDITION STABLE. HE'S IN THE RESTROOM AT THIS TIME, INSTRUCTED TO CALL FOR ASSISTANCE NEEDED.
--- NOTE | 2019-02-09 23:39 | Diagnostic Imaging Report ---
CT Abdomen and Pelvis without contrast INDICATION: Renal stones TECHNIQUE: Thin collimation axial images obtained from the diaphragm to the level of the pubic symphysis without nonionic intravenous contrast. Oral contrast was administered. Dose reduction techniques used: Automated exposure control, adjustment of the mAs and/or kVp according to patient size, standardized low-dose protocol, and/or iterative reconstruction technique. RADIATION DOSE: Total DLP: 823.6 mGy*cm Estimated effective dose: (DLP x 0.015 x size factor) mSv CTDIvol has been reviewed. It is below the limits set by the Radiation Protocol Committee (RPC). COMPARISON: None. ABDOMEN FINDINGS: Lung Bases: Mild hyperinflation. Bibasilar subsegmental atelectasis. Rounded atelectasis in the right posterior costophrenic angle. Small pericardial effusion. Liver: Decreased attenuation. No mass. Gallbladder: Absent. No ductal dilatation. Pancreas: Diffuse atrophy. Punctate calcification in the inferior head. No soft tissue mass or ductal dilatation. Spleen: Normal size without mass. Adrenal Glands: No evidence for mass. Kidneys: Right: No renal calculus. Scattered cysts. Cyst in the interpolar cortex measures 3.3 cm. Isoattenuating mass arising from the lateral cortex of the lower pole measures 2.8 x 2.4 cm and may or may not be solid. Punctate lower pole calculus. No hydronephrosis. Left: No renal calculus. There are several cysts measuring up to 2.4 cm. No hydronephrosis. Lymph Nodes: No upper abdominal lymphadenopathy. Aorta: Aorta is normal in diameter and diffusely calcified PELVIS FINDINGS: Bowel: Stomach: Normal. Small Bowel: Normal in caliber with normal wall thickness. Large Bowel: Mild to moderate burden of stool. Diverticulosis coli. No associated inflammation. Appendix: Normal. Bladder: Diffuse perivesicular inflammation. Mild mural thickening. Prostate: Measures 6.5 x 8.6 cm in the axial plane. The tissue planes surrounding the prostate gland are edematous. Seminal vesicles are mildly prominent. Ureters: The left mid/distal ureter contains a calculus measuring 8 mm. The ureter is not dilated. The right ureter is normal in diameter without calculus. Peritoneum/retroperitoneum: Mild amount of presacral edema. Lymph nodes: A right perirectal lymph node measures 12 mm. A lymph node in the left pelvic sidewall measures 12 mm. A lymph node adjacent to the urinary bladder measures 8 mm. No enlarged inguinal lymph nodes. Bones: No focal osseous lesions. Mild degenerative changes of the hips. Soft tissues: Fat-containing umbilical hernia has an aperture of 19 mm.. IMPRESSION: 1. Nonobstructing calculus in the mid/distal left ureter. Right intrarenal calculus. 2. Bilateral renal cysts. One cortical lesion arising from the lower pole of the right kidney may or may not be cystic. Recommend further evaluation with renal ultrasound. 3. Enlarged and possibly edematous prostate gland and perivesicular inflammation. This may be the result of prostatitis and cystitis. Prostate malignancy cannot be excluded. 4. Prominent pelvic lymph nodes. This may be reactive to an infectious/inflammatory process. However, neoplasm cannot be excluded. 5. Diverticulosis coli. No evidence for bowel obstruction or inflammation. 6. Bibasilar atelectasis. Pulmonary hyperinflation suggestive of COPD. 7. Steatosis. Fat-containing umbilical hernia. Signed by: Dr. Konstantin Roldan MD on 02/09/2019 11:35 PM
[2019-02-10] VITALS (7 sets, daily range): BP systolic 125–152; BP diastolic 59–68
[2019-02-10] MEDS: DEXLANSOPRAZOLE 60 MG PO SCH ×2 (00:13→12:45)
--- NOTE | 2019-02-10 01:15 | NUR ---
BED ALARM WENT OFF, UPON ASSESSMENT THE PATIENT WAS OBSERVED AMBULATING WITH GAIT UNSTEADY AND HE ALMOST FELL. HE WAS ASSISTED TO THE RESTROOM AND HE'S NOW BACK IN BED WITH BED ALARM ON AND HE'S INSTRUCTED TO CALL FOR ASSISTANCE UPON GETTING OUT OF THE BED TO PREVENT FALL.
--- NOTE | 2019-02-10 01:32 | History and Physical ---
CHIEF COMPLAINT: Fever and chills. HISTORY OF PRESENT ILLNESS: This patient is a very pleasant 68-year-old white male, denies any past medical history, comes in with 3 days history of fever, chills, not feeling well, some minimal abdominal discomfort. The patient comes into the hospital. He was started on IV antibiotic with no improvement for two days. Infectious Disease was consulted. Now he is currently lying in bed comfortably. He is feeling better. The patient apparently received Azactam and ceftazidime. He did grow E. coli in the urine as well in the blood. E. coli was resistant to Cipro and to levofloxacin and ampicillin, but otherwise pansensitive. The patient has history of obesity and history of chronic kidney disease. ALLERGIES: THE PATIENT IS SUPPOSEDLY ALLERGIC TO SULFA AND PENICILLIN, BUT HE DID WELL WITH CEFTAZIDIME. SOCIAL HISTORY: There is no smoking, drug abuse, or alcohol abuse. PAST MEDICAL HISTORY: Diabetes mellitus, controlled; hypercholesteremia, gout, reflux disease, benign prostatic hypertrophy, kidney stones, hypertension. PAST SURGICAL HISTORY: Hernia repair, right knee surgery, prostate biopsy, cardiac stent 7 years ago. REVIEW OF SYSTEMS: HEENT: There is no headache, visual changes, or hearing changes. GI: There is no nausea, no vomiting, no diarrhea, but he has some nausea before he came here. Currently, there is no visual changes or hearing changes. There are no pulmonary complaints. There is no cardiac complaint. There is no complaint except some abdominal discomfort as mentioned above. All other symptoms are within normal limits at present time. SKIN: There is no rash. NEURO: No seizure activity. MSK: Joints has chronic aches and pains, otherwise stable. LABORATORY DATA: Reviewed. Blood cultures were positive. His white count on admission was 18.9, today, it is 13.3. Sodium on admission was 137, potassium 3.5, creatinine 1.3. Chest x-ray was mild opacity in the perihilar area. PHYSICAL EXAMINATION: GENERAL: He is currently alert, oriented, does not seem to be in acute distress. VITAL SIGNS: Stable, currently afebrile. HEENT: He is not icteric. NECK: Supple. No JVD. No lymphadenopathy. No thyromegaly. CHEST: Clear bilateral. HEART: S1, S2. No S3, S4, or murmur. ABDOMEN: Soft, obese. No tenderness. No hepatosplenomegaly. EXTREMITIES: No edema. SKIN: There is no rash. EXTREMITIES: There is no edema. REVIEW OF SYSTEMS: A 14-point reviewed, all negative. MEDICATION LIST: Reviewed as mentioned above. He is currently on ceftazidime, allopurinol, and dicyclomine. IMPRESSION: I think the patient with sepsis secondary to pyelonephritis with E. coli. We will him on Rocephin IV q.12 hours. History of kidney stone. We will obtain CT scan to rule out kidney stone. 1. Acute kidney injury, probably chronic kidney disease. Recheck chemistry panel. Agree with IV fluid. 2. Abdominal pain, may be gastritis. Consider Prilosec. 3. Obesity. 4. History of hypertension, history of hypercholesteremia. 5. Discussed with the patient, answered all the questions. TIME SPENT: 60 minutes. MD SOWMYA Box/BILL /[id number]
--- NOTE | 2019-02-10 05:30 | NUR ---
PATIENT IS SOUNDLY ASLEEP, HE'S EASY TO AROUSE. NO RESPIRATORY DISTRESS OBSERVED, HE DENIES ABDOMINAL PAIN. CALL LIGHT AND URINAL WITHIN EASY REACH, BED ALARM ON.
[2019-02-10 06:17] LABS: BASOPHILS % 0.3 % (0.0-1.0); EOSINOPHILS # (AUTO) 0.1 (0.0-0.4); EOSINOPHILS % 0.7 % (0.0-6.0); HEMATOCRIT 33.5 % (38.2-49.6); HEMOGLOBIN 11.1 g/dL (14.0-18.0); LYMPHOCYTES # (AUTO) 1.8 (1.0-3.2); LYMPHOCYTES % 12.1 % (18.0-39.1); MEAN CORPUSCULAR HEMOGLOBIN 31.1 pg (28-32); MEAN CORPUSCULAR HGB CONC 33.1 g/dL (31-35); MEAN CORPUSCULAR VOLUME 93.8 fL (81-99); MONOCYTES # (AUTO) 1.5 (0.2-0.8); NEUTROPHILS # (AUTO) 11.3 (2.1-6.9); NEUTROPHILS % 76.4 % (38.7-80.0); PLATELET COUNT 196 x10e3/uL (140-360); RED BLOOD COUNT 3.57 x10e6/uL (4.3-5.7); RED CELL DISTRIBUTION WIDTH 14.1 % (11.7-14.4)
[2019-02-10 06:38] LABS: ANION GAP 12.4 mmol/L (8-16); CALCIUM 8.9 mg/dL (8.4-10.2); CREATININE, SERUM 1.36 mg/dL (0.72-1.25); POTASSIUM 3.4 mmol/L (3.5-5.1)
[2019-02-10] MEDS: INSULIN REGULAR, HUMAN 100 UNIT/1 ML 3ML VIAL SQ SCH ×4 (07:30→21:00)
[2019-02-10] MEDS: CEFTRIAXONE SOD 1 GM/NS 50 ML 50 ML IV SCH ×2 (09:10→20:38)
[2019-02-10] MEDS: ASPIRIN 81 MG CHEW TAB PO SCH (09:11)
[2019-02-10] MEDS: FUROSEMIDE INJ 10 MG/ML 4 ML VIAL IV SCH (09:11)
[2019-02-10] MEDS: AMLODIPINE BESYLATE 10 MG TAB PO SCH (09:11)
[2019-02-10] MEDS: SUCRALFATE 1 GM TAB PO SCH ×4 (09:11→20:39)
[2019-02-10] MEDS: DICYCLOMINE HCL 20 MG TAB PO SCH ×2 (09:11→17:43)
[2019-02-10] MEDS: FENOFIBRATE 145 MG TAB PO SCH (09:12)
[2019-02-10] MEDS: ALLOPURINOL 300 MG TAB PO SCH (09:12)
[2019-02-10] MEDS: ACEBUTOLOL HCL 200 MG CAP PO SCH ×2 (09:12→17:44)
--- NOTE | 2019-02-10 10:24 | NUR ---
CASE MANAGEMENT INITIAL ASSESSMENT Pastry Assistant to bedside to discuss plan of care with patient/family. CM/SW role and care transitions discussed. Anticipated discharge plan discussed along with duration of care. CM/SW discussed patients right to make decisions in care. CM/SW work hours given. Patient lives: ALONE IN A 1 STORY HOME Admit/Transfer: ER Hospital/ER visits since last admit: NONE POA/Emergency contact: PT STATES ANY OF HIS CHILDREN ARE OK TO CALL Current/Previous Home Health: NONE PCP/Follow-up Care: DR LAY Current/Previous DME: NONE Other Services: NONE Employment Status: RETIRED EMS FROM [employer] Areas of Concerns: NONE Referral Needs: NONE. STATES HE HAS NEVER BEEN IN A HOSPITAL Education Needs: NONE IMM/HU given and signed (if applicable): ON ADM Goal for discharge: RETURN HOME CM/SW left business card at the bedside with contact information. Name and number was also written on the patients whiteboard. Patient verbalized understanding of discussion. CM will follow-up with ongoing discharge and transition of care needs.
[2019-02-10] MEDS: ACETAMINOPHEN 325 MG TAB PO PRN (11:06)
[2019-02-10] MEDS: AZTREONAM 1 GM/NS 50 ML 50 ML IV SCH ×2 (12:45→21:59)
[2019-02-10] MEDS ORDERED: ONDANSETRON HCL 4 MG ORAL DISINTEGRATING TAB PO PRN (13:45)
[2019-02-10] MEDS ORDERED: NON-FORMULARY MEDICATION (Cetirizine Hcl (Zyrtec) 10 MG) PO SCH (20:00)
[2019-02-10] MEDS ORDERED: LORATADINE 10 MG TAB PO SCH (20:00)
[2019-02-10] MEDS: ALPRAZOLAM 1 MG TAB PO SCH (20:39)
[2019-02-10] MEDS: SIMVASTATIN 20 MG TAB PO SCH (20:39)
[2019-02-10] MEDS: TAMSULOSIN HCL 0.4 MG CAP PO SCH (20:39)
[2019-02-11] VITALS (7 sets, daily range): BP systolic 141–164; BP diastolic 66–74
[2019-02-11] MEDS: HYDROCODONE/APAP 10MG-325MG TAB PO SCH (00:31)
[2019-02-11] MEDS: DEXLANSOPRAZOLE 60 MG PO SCH ×2 (00:31→12:00)
--- NOTE | 2019-02-11 00:34 | NUR ---
PATIENT C/O MILD NECK PAIN, MEDICATED WITH NORCO 1TAB ORDERED. ASSISTED WITH ADLS, CALL LIGHT WITHIN EASY REACH, INSTRUCTED TO CALL FOR ASSISTANCE NEEDED.
--- NOTE | 2019-02-11 04:41 | NUR ---
PATIENT ASSISTED TO THE RESTROOM, HE'S NOW BACK IN BED WITHOUT RESPIRATORY DISTRESS AND HE DENIES PAIN. CALL LIGHT WITHIN EASY REACH, HE'S INSTRUCTED TO CALL FOR ASSISTANCE NEEDED.
[2019-02-11] MEDS: AZTREONAM 1 GM/NS 50 ML 50 ML IV SCH ×3 (05:45→22:18)
[2019-02-11 06:21] LABS: BASOPHILS # (AUTO) 0.1 (0.0-0.1); BASOPHILS % 0.4 % (0.0-1.0); EOSINOPHILS # (AUTO) 0.3 (0.0-0.4); EOSINOPHILS % 2.6 % (0.0-6.0); HEMATOCRIT 32.9 % (38.2-49.6); HEMOGLOBIN 11.1 g/dL (14.0-18.0); LYMPHOCYTES # (AUTO) 2.3 (1.0-3.2); LYMPHOCYTES % 17.7 % (18.0-39.1); MEAN CORPUSCULAR HEMOGLOBIN 31.2 pg (28-32); MEAN CORPUSCULAR HGB CONC 33.7 g/dL (31-35); MEAN CORPUSCULAR VOLUME 92.4 fL (81-99); MONOCYTES # (AUTO) 1.5 (0.2-0.8); MONOCYTES % 11.7 % (4.4-11.3); NEUTROPHILS # (AUTO) 8.8 (2.1-6.9); NEUTROPHILS % 67.1 % (38.7-80.0); PLATELET COUNT 207 x10e3/uL (140-360); RED BLOOD COUNT 3.56 x10e6/uL (4.3-5.7); RED CELL DISTRIBUTION WIDTH 14.3 % (11.7-14.4)
[2019-02-11 06:36] LABS: ANION GAP 10.2 mmol/L (8-16); BLOOD UREA NITROGEN 17 mg/dL (7-26); BUN/CREATININE RATIO 16 (6-25); CARBON DIOXIDE 24 mmol/L (22-29); CHLORIDE 105 mmol/L (98-107); CREATININE, SERUM 1.09 mg/dL (0.72-1.25); EST GLOMERULAR FILTRATION RATE > 60 ML/MIN (60-); GLUCOSE 83 mg/dL (74-118); POTASSIUM 3.2 mmol/L (3.5-5.1); SODIUM 136 mmol/L (136-145)
[2019-02-11] MEDS: INSULIN REGULAR, HUMAN 100 UNIT/1 ML 3ML VIAL SQ SCH ×4 (07:30→21:00)
[2019-02-11] MEDS: CEFTRIAXONE SOD 1 GM/NS 50 ML 50 ML IV SCH ×2 (08:25→20:50)
[2019-02-11] MEDS: FUROSEMIDE INJ 10 MG/ML 4 ML VIAL IV SCH (08:26)
[2019-02-11] MEDS: SUCRALFATE 1 GM TAB PO SCH ×4 (08:26→20:50)
[2019-02-11] MEDS: DICYCLOMINE HCL 20 MG TAB PO SCH ×2 (08:26→17:21)
[2019-02-11] MEDS: ASPIRIN 81 MG CHEW TAB PO SCH (08:26)
[2019-02-11] MEDS: FENOFIBRATE 145 MG TAB PO SCH (08:27)
[2019-02-11] MEDS: AMLODIPINE BESYLATE 10 MG TAB PO SCH (08:27)
[2019-02-11] MEDS: ALLOPURINOL 300 MG TAB PO SCH (08:27)
[2019-02-11] MEDS: ACEBUTOLOL HCL 200 MG CAP PO SCH ×2 (08:27→17:22)
[2019-02-11] MEDS ORDERED: POLYETHYLENE GLYCOL 3350 17 GM PACK PO PRN (11:45)
[2019-02-11] MEDS ORDERED: POTASSIUM CHLORIDE 10MEQ EA PO NR ×2 (15:45→20:00)
[2019-02-11] MEDS: TAMSULOSIN HCL 0.4 MG CAP PO SCH (20:50)
[2019-02-11] MEDS: ALPRAZOLAM 1 MG TAB PO SCH (20:50)
[2019-02-11] MEDS: LORATADINE 10 MG TAB PO SCH (20:50)
[2019-02-11] MEDS: SIMVASTATIN 20 MG TAB PO SCH (20:50)
--- NOTE | 2019-02-11 20:53 | NUR ---
PATIENT SITTING UP AT THE SIDE OF THE BED, NO ACUTE DISTRESS OBSERVED. HE HAS USED THE TOILET SEVERAL TIMES, HE'S INSTRUCTED TO CALL FOR ASSISTANCE NEEDED. CALL LIGHT AND URINAL WITHIN EASY REACH, HE DENIES PAIN.
[2019-02-12] VITALS (9 sets, daily range): BP systolic 111–167; BP diastolic 56–86
--- NOTE | 2019-02-12 01:40 | NUR ---
PATIENT IS ASLEEP, HE'S EASY TO AROUSE. NO RESPIRATORY DISTRESS OBSERVED, URINAL AND CALL LIGHT WITHIN EASY REACH.
--- NOTE | 2019-02-12 05:15 | NUR ---
PATIENT CONDITION STABLE WITHOUT DISTRESS, HE DENIES PAIN. CALL LIGHT AND URINAL WITHIN EASY REACH, PATIENT EDUCATED TO AMBULATE IN THE HALLWAY TODAY.
[2019-02-12] MEDS: AZTREONAM 1 GM/NS 50 ML 50 ML IV SCH ×2 (06:01→13:38)
[2019-02-12] MEDS: INSULIN REGULAR, HUMAN 100 UNIT/1 ML 3ML VIAL SQ SCH ×4 (07:30→20:26)
--- NOTE | 2019-02-12 07:50 | NUR ---
PATIENT IN STABLE CONDITION WITH NO S/S OF RESPIRATORY DISTRESS. NO PAIN VOICED. URINAL AVAILABLE NEAR BEDSIDE. CALL LIGHT IS WITHIN REACH OF PATIENT- PATIENT INSTRUCTED TO CALL FOR ASSISTANCE NEEDED.
[2019-02-12] MEDS: FENOFIBRATE 145 MG TAB PO SCH (09:27)
[2019-02-12] MEDS: ACEBUTOLOL HCL 200 MG CAP PO SCH ×2 (09:27→17:36)
[2019-02-12] MEDS: ALLOPURINOL 300 MG TAB PO SCH (09:27)
[2019-02-12] MEDS: FUROSEMIDE INJ 10 MG/ML 4 ML VIAL IV SCH (09:28)
[2019-02-12] MEDS: AMLODIPINE BESYLATE 10 MG TAB PO SCH (09:28)
[2019-02-12] MEDS: SUCRALFATE 1 GM TAB PO SCH ×4 (09:28→20:25)
[2019-02-12] MEDS: DICYCLOMINE HCL 20 MG TAB PO SCH ×2 (09:28→17:36)
[2019-02-12] MEDS: CEFTRIAXONE SOD 1 GM/NS 50 ML 50 ML IV SCH ×2 (09:28→20:25)
[2019-02-12] MEDS: ASPIRIN 81 MG CHEW TAB PO SCH (09:28)
[2019-02-12] MEDS: DEXLANSOPRAZOLE 60 MG PO SCH ×2 (11:18)
--- NOTE | 2019-02-12 19:18 | NUR ---
PATIENT IN STABLE CONDITION WITH NO S/S OF RESPIRATORY DISTRESS. NO PAIN VOICED. BLOOD CULTURES ORDERED PER DR. GODDARD. CALL LIGHT IS WITHIN REACH OF PATIENT- PATIENT INSTRUCTED TO CALL FOR ASSISTANCE NEEDED. BEDSIDE REPORT GIVEN TO ONCOMING NURSE.
--- NOTE | 2019-02-12 19:44 | NUR ---
PT IS RESTING IN BED. NO RESPIRATORY DISTRESS NOTED. BED IN THE LOWEST POSITION, LOCKED, AND CALL LIGHT WITHIN REACH. WILL CONTINUE TO MONITOR.
[2019-02-12] MEDS: TAMSULOSIN HCL 0.4 MG CAP PO SCH (20:25)
[2019-02-12] MEDS: SIMVASTATIN 20 MG TAB PO SCH (20:25)
[2019-02-12] MEDS: LORATADINE 10 MG TAB PO SCH (20:25)
[2019-02-12] MEDS: ACETAMINOPHEN 325 MG TAB PO PRN (20:25)
[2019-02-12] MEDS: ALPRAZOLAM 1 MG TAB PO SCH (20:25)
[2019-02-12 20:27] LABS: HEMATOCRIT 34.4 % (38.2-49.6); HEMOGLOBIN 11.5 g/dL (14.0-18.0); MEAN CORPUSCULAR HEMOGLOBIN 30.8 pg (28-32); MEAN CORPUSCULAR HGB CONC 33.4 g/dL (31-35); MEAN CORPUSCULAR VOLUME 92.2 fL (81-99); PLATELET COUNT 272 x10e3/uL (140-360); RED BLOOD COUNT 3.73 x10e6/uL (4.3-5.7); RED CELL DISTRIBUTION WIDTH 14.4 % (11.7-14.4)
[2019-02-12 21:14] LABS: HYPOCHROMASIA SLIGHT; LYMPHOCYTES % (MANUAL) 7 % (19-48); MONOCYTES % (MANUAL) 5 % (3.4-9.0); NEUTROPHILS % (MANUAL) 84 % (40-74); PLATELET ESTIMATE ADEQUATE; PLATELET MORPHOLOGY COMMENT NORMAL; RBC MORPHOLOGY COMMENT NORMAL
--- NOTE | 2019-02-12 22:38 | Progress Note ---
DATE: SUBJECTIVE: Mr. Solis was seen and examined today. He was seen by physician orthodontic technician assistant earlier. He was concerned about his mental status. I was asked to come and see him. The patient seemed to be little bit anxious. He is concerned because he wants to two antibiotic and I will try to explain to him that there is no point of adding two antibiotics. He grew E coli, which was pansensitive. I recommend to do either Rocephin or Azactam, he wanted both and I agreed reluctantly at the beginning with Dr. Ugalde that the patient will feel better if he takes both, but now, the patient is a little bit anxious. He also felt feverish and I asked the nurse to obtain a temperature, the patient had a temperature 100.5. REVIEW OF SYSTEMS: GENERAL: He is just little bit anxious. No other complaints. HEENT: Negative. PULMONARY: Negative. CARDIAC: Negative. : Negative. SKIN: There is no rash that I can see or he complained of. He had no diarrhea but had one large bowel movement. OBJECTIVE: GENERAL: He is currently alert, oriented, does not seem to be in acute distress. VITAL SIGNS: Stable, temperature 100.5. HEENT: He is not icteric. NECK: Supple. CHEST: Clear. HEART: S1, S2. No murmur. ABDOMEN: Soft. Bowel sounds present. EXTREMITIES: No edema. LABORATORY DATA: Reviewed. His white count 13.1, hemoglobin 11. His creatinine is 1.09. Repeat blood cultures are negative. IMPRESSION: 1. Low fever. It could be drug related at the present time. I recommend strongly to discontinue one of the antibiotic. I had very long discussion with him, he agreed to discontinue Azactam. Finally, it took me a good 35 minutes to convince him. I went to review chart and went back and talked to him again. We will continue Rocephin 1 g every 24 hours for the time being. Recheck CBC. Recheck Chem panel. Obtain blood cultures. 2. One loose bowel movement. We will watch if he had diarrhea. It could be drug related. 3. Pyelonephritis. I think it is improving. 4. Fever, is also improving. 5. Debility. 6. Concern about component of anxiety. 7. Hyperlipidemia. 8. Hypertension. Discussed also with Dr. Christophe Ugalde. MD LEONARDO Box /[id number]
[2019-02-13] VITALS (8 sets, daily range): BP systolic 132–181; BP diastolic 63–82
[2019-02-13] MEDS: DEXLANSOPRAZOLE 60 MG PO SCH ×3 (00:41→23:59)
[2019-02-13 06:51] LABS: BLOOD UREA NITROGEN 12 mg/dL (7-26); BUN/CREATININE RATIO 13 (6-25); CARBON DIOXIDE 25 mmol/L (22-29); CHLORIDE 104 mmol/L (98-107); EST GLOMERULAR FILTRATION RATE > 60 ML/MIN (60-); GLUCOSE 87 mg/dL (74-118); SODIUM 139 mmol/L (136-145)
[2019-02-13 06:53] LABS: BASOPHILS # (AUTO) 0.1 (0.0-0.1); BASOPHILS % 0.4 % (0.0-1.0); EOSINOPHILS # (AUTO) 0.2 (0.0-0.4); EOSINOPHILS % 1.2 % (0.0-6.0); HEMATOCRIT 34.5 % (38.2-49.6); HEMOGLOBIN 11.4 g/dL (14.0-18.0); LYMPHOCYTES # (AUTO) 2.3 (1.0-3.2); MEAN CORPUSCULAR HEMOGLOBIN 30.9 pg (28-32); MEAN CORPUSCULAR VOLUME 93.5 fL (81-99); MONOCYTES # (AUTO) 1.5 (0.2-0.8); MONOCYTES % 11.3 % (4.4-11.3); NEUTROPHILS # (AUTO) 9.3 (2.1-6.9); NEUTROPHILS % 69.2 % (38.7-80.0); PLATELET COUNT 282 x10e3/uL (140-360); RED BLOOD COUNT 3.69 x10e6/uL (4.3-5.7); RED CELL DISTRIBUTION WIDTH 14.5 % (11.7-14.4)
--- NOTE | 2019-02-13 07:28 | NUR ---
CALL PLACED OUT TO DR. LAY REGARDING POTASSIUM LEVEL OF 3.0 - AWAITING CALLBACK.
[2019-02-13] MEDS: INSULIN REGULAR, HUMAN 100 UNIT/1 ML 3ML VIAL SQ SCH ×4 (07:30→21:00)
--- NOTE | 2019-02-13 07:51 | NUR ---
RECEIVED CALLBACK FROM DR. LAY REGARDING POTASSIUM LEVEL - NEW ORDERS RECEIVED. INFORMED DR. LAY OF DR. GODDARD'S AND DR. GODDARD'S P.A. INQUIRY IN PSYCH EVAL FOR PATIENT- DR. LAY STATED "NO".
[2019-02-13] MEDS ORDERED: POTASSIUM CHLORIDE 20 MEQ TAB CR PO NR ×2 (08:00→12:00)
[2019-02-13] MEDS: ASPIRIN 81 MG CHEW TAB PO SCH (08:09)
[2019-02-13] MEDS: FENOFIBRATE 145 MG TAB PO SCH (08:09)
[2019-02-13] MEDS: DICYCLOMINE HCL 20 MG TAB PO SCH ×2 (08:09→16:45)
[2019-02-13] MEDS: SUCRALFATE 1 GM TAB PO SCH ×4 (08:09→22:05)
[2019-02-13] MEDS: ALLOPURINOL 300 MG TAB PO SCH (08:09)
[2019-02-13] MEDS: AMLODIPINE BESYLATE 10 MG TAB PO SCH (08:09)
[2019-02-13] MEDS: ACEBUTOLOL HCL 200 MG CAP PO SCH ×2 (08:10→16:45)
[2019-02-13] MEDS: FUROSEMIDE INJ 10 MG/ML 4 ML VIAL IV SCH (08:13)
[2019-02-13] MEDS: CEFTRIAXONE SOD 1 GM/NS 50 ML 50 ML IV SCH ×2 (08:13→22:05)
[2019-02-13] MEDS: ACETAMINOPHEN 325 MG TAB PO PRN ×2 (09:30→18:11)
--- NOTE | 2019-02-13 19:10 | NUR ---
PATIENT IN STABLE CONDITION WITH NO S/S OF RESPIRATORY DISTRESS. TYLENOL RECENTLY GIVEN TO PATIENT. CALL LIGHT IS WITHIN REACH, PATIENT INSTRUCTED TO CALL FOR ASSISTANCE NEEDED. BEDSIDE REPORT GIVEN TO ONCOMING NURSE.
--- NOTE | 2019-02-13 19:28 | NUR ---
PT IS RESTING IN BED. NO RESPIRATORY DISTRESS NOTED. BED IN THE LOWEST POSITION, LOCKED, AND CALL LIGHT WITHIN REACH. WILL CONTINUE TO MONITOR.
[2019-02-13] MEDS: LORATADINE 10 MG TAB PO SCH (22:05)
[2019-02-13] MEDS: TAMSULOSIN HCL 0.4 MG CAP PO SCH (22:05)
[2019-02-13] MEDS: SIMVASTATIN 20 MG TAB PO SCH (22:05)
[2019-02-13] MEDS: ALPRAZOLAM 1 MG TAB PO SCH (22:05)
[2019-02-14] VITALS: BP 157/72
[2019-02-14] MEDS: HYDROCODONE/APAP 10MG-325MG TAB PO SCH (03:45)
[2019-02-14 04:00] VITALS: BP 152/72
[2019-02-14 06:00] LABS: HEMATOCRIT 32.5 % (38.2-49.6); HEMOGLOBIN 10.7 g/dL (14.0-18.0); MEAN CORPUSCULAR HEMOGLOBIN 30.7 pg (28-32); MEAN CORPUSCULAR HGB CONC 32.9 g/dL (31-35); MEAN CORPUSCULAR VOLUME 93.4 fL (81-99); PLATELET COUNT 299 x10e3/uL (140-360); RED BLOOD COUNT 3.48 x10e6/uL (4.3-5.7); RED CELL DISTRIBUTION WIDTH 14.5 % (11.7-14.4)
[2019-02-14 06:19] LABS: ANION GAP 12.2 mmol/L (8-16); BLOOD UREA NITROGEN 11 mg/dL (7-26); BUN/CREATININE RATIO 12 (6-25); CALCIUM 8.7 mg/dL (8.4-10.2); CARBON DIOXIDE 25 mmol/L (22-29); CHLORIDE 107 mmol/L (98-107); CREATININE, SERUM 0.91 mg/dL (0.72-1.25); EST GLOMERULAR FILTRATION RATE > 60 ML/MIN (60-); GLUCOSE 85 mg/dL (74-118); POTASSIUM 3.2 mmol/L (3.5-5.1); SODIUM 141 mmol/L (136-145)
[2019-02-14] MEDS: INSULIN REGULAR, HUMAN 100 UNIT/1 ML 3ML VIAL SQ SCH ×2 (07:30→11:30)
[2019-02-14 08:00] VITALS: BP 122/68
[2019-02-14] MEDS ORDERED: POTASSIUM CHLORIDE 20 MEQ TAB CR PO ONE ×2 (08:40→12:00)
[2019-02-14 08:50] VITALS: BP 122/68
--- NOTE | 2019-02-14 08:50 | NUR ---
Pt received resting in bed. Alert and oriented x4. Oriented to staff and surrounding, and encouraged to press call alanis if help needed. Emotional support given. All meds given as ordered. Pt for discharge this AM. Will monitor
[2019-02-14] MEDS: ASPIRIN 81 MG CHEW TAB PO SCH (08:56)
[2019-02-14] MEDS: CEFTRIAXONE SOD 1 GM/NS 50 ML 50 ML IV SCH (08:56)
[2019-02-14] MEDS: FUROSEMIDE INJ 10 MG/ML 4 ML VIAL IV SCH (08:56)
[2019-02-14] MEDS: DICYCLOMINE HCL 20 MG TAB PO SCH (08:56)
[2019-02-14] MEDS: SUCRALFATE 1 GM TAB PO SCH ×2 (08:56→12:43)
[2019-02-14] MEDS: AMLODIPINE BESYLATE 10 MG TAB PO SCH (08:57)
[2019-02-14] MEDS: ACEBUTOLOL HCL 200 MG CAP PO SCH (08:57)
[2019-02-14] MEDS: ALLOPURINOL 300 MG TAB PO SCH (08:57)
[2019-02-14] MEDS: FENOFIBRATE 145 MG TAB PO SCH (08:57)
[2019-02-14 12:00] VITALS: BP 155/76
[2019-02-14] MEDS: DEXLANSOPRAZOLE 60 MG PO SCH (12:00)
[2019-02-14 13:13] LABS: ANISOCYTOSIS SLIGHT; EOSINOPHILS % (MANUAL) 1 % (0-7); HYPOCHROMASIA MODERATE; LYMPHOCYTES % (MANUAL) 19 % (19-48); METAMYELOCYTES % (MANUAL) 1 % (0-0); MONOCYTES % (MANUAL) 9 % (3.4-9.0); MYELOCYTES % (MANUAL) 1 % (0-0); NEUTROPHILS % (MANUAL) 68 % (40-74); PLATELET ESTIMATE ADEQUATE; PLATELET MORPHOLOGY COMMENT NORMAL; RBC MORPHOLOGY COMMENT NORMAL
[2019-02-14] MEDS ORDERED: LASIX40 MG PO (13:52)
[2019-02-14] MEDS ORDERED: K DUR10 MEQ PO (13:52)
[2019-02-14] MEDS ORDERED: KEFLEX500 MG PO (13:52)
--- NOTE | 2019-02-14 14:40 | NUR ---
Pt for discharge home. Discharge instructions regarding meds, activities, and follow up appointment. Pt verbalized understanding of teaching. Will monitor
--- NOTE | 2019-02-14 15:29 | NUR ---
IMM LETTER WAS EXPLAINED TO THE PT. VERBALIZED UNDERSTANDING. IMM LETTER [place] SIGNED. COPY TO CHART AND COPY TO PT.
== END 2019-02-14 15:07 | disposition home or self-care (01) | DRG 872 ==
LOC: ER 01:39 → ERHOLD 03:48 → MED/SURG3 04:30
DX: A41.51 Sepsis due to Escherichia coli [E. coli] (principal); N10 Acute pyelonephritis; N17.9 Acute kidney failure, unspecified; N18.9 Chronic kidney disease, unspecified; E66.9 Obesity, unspecified; I12.9 Hypertensive chronic kidney disease with stage 1 through stage 4 chronic kidney disease, or unspecified chronic kidney disease; K29.70 Gastritis, unspecified, without bleeding; N41.9 Inflammatory disease of prostate, unspecified; J40 Bronchitis, not specified as acute or chronic; Z68.35 Body mass index [BMI] 35.0-35.9, adult; E11.22 Type 2 diabetes mellitus with diabetic chronic kidney disease; E78.00 Pure hypercholesterolemia, unspecified; M10.9 Gout, unspecified; K21.9 Gastro-esophageal reflux disease without esophagitis; N40.0 Benign prostatic hyperplasia without lower urinary tract symptoms; K44.9 Diaphragmatic hernia without obstruction or gangrene; R53.81 Other malaise; F41.9 Anxiety disorder, unspecified; E87.6 Hypokalemia; Z87.442 Personal history of urinary calculi; Z95.5 Presence of coronary angioplasty implant and graft; Z79.82 Long term (current) use of aspirin; Z88.0 Allergy status to penicillin; Z88.2 Allergy status to sulfonamides
CPT/HCPCS: 36415; 71045; 71046; 74176; 80048; 80053; 81001; 82550; 82553; 82948; 83605; 84484; 85007; 85025; 85027; 87040; 87071; 87086; 87186; 87205; 94640; 96367; 99284; J0456; J0696; J0713; J1940; J1956; J7030

== ENCOUNTER → 2020-04-22 | Day surgery (SDC) | payer MEDICARE, OTHER ==
[2020-04-19 12:45] LABS: BASOPHILS # (AUTO) 0.1 (0.0-0.1); BASOPHILS % 0.7 % (0.0-1.0); EOSINOPHILS # (AUTO) 0.3 (0.0-0.4); HEMATOCRIT 44.7 % (38.2-49.6); HEMOGLOBIN 14.3 g/dL (14.0-18.0); LYMPHOCYTES # (AUTO) 3.4 (1.0-3.2); MEAN CORPUSCULAR HEMOGLOBIN 30.6 pg (28-32); MEAN CORPUSCULAR VOLUME 95.5 fL (81-99); MONOCYTES # (AUTO) 0.9 (0.2-0.8); MONOCYTES % 9.6 % (4.4-11.3); NEUTROPHILS # (AUTO) 4.8 (2.1-6.9); NEUTROPHILS % 50.6 % (38.7-80.0); PLATELET COUNT 268 x10e3/uL (140-360); RED BLOOD COUNT 4.68 x10e6/uL (4.3-5.7); RED CELL DISTRIBUTION WIDTH 13.3 % (11.7-14.4)
[~2020-04-22] MED LIST changes: +ALPRAZOLAM1 MG PO; +DICYCLOMINE HCL10 MG PO; +DICYCLOMINE HCL20 MG PO; +ETOMIDATE 2 MG/ML 10 ML INJ IV ONE; +K DUR10 MEQ PO; +KEFLEX500 MG PO; +LASIX40 MG PO; +NORCO 10-325 T1 EACH PO; +OZEMPIC SQ; +PANTOPRAZOLE 40 MG 10ML VIAL ONE; +PROPOFOL IV EMULSION 10 MG/ML 20 ML VIAL ONE; +VITAMIN D325 MCG PO
[2020-04-22 13:15] VITALS: BP 144/69
--- NOTE | 2020-04-22 20:35 | Operative Report ---
DATE OF PROCEDURE: 04/22/2020 SURGEON: Suleman Ugalde MD PROCEDURE: EGD with polypectomy and biopsies. INDICATIONS FOR EGD: Upper abdominal pain, heartburn. MEDICATIONS: The patient was done under MAC, please see anesthesiologist's note. PROCEDURE IN DETAIL: With the patient in left lateral decubitus position, a flexible fiberoptic Olympus gastroscope was introduced into the esophagus under direct visualization without any difficulty. The esophagus appeared to be within normal limits. The scope was then advanced with ease into the stomach. Mucosa overlying the antrum revealed some patchy intense erythema and moderate edema, and biopsies were obtained sent to stain for H pylori. There was a minute nodule noted in the antrum and that was biopsied. An approximately 5 mm submucosal lesion incisura? lipoma biopsied. The pylorus was of normal contour and shape, was intubated with ease and the scope was advanced all the way to the second portion of the duodenum. Biopsies were obtained from the proximal second portion and the duodenal bulb to rule out sprue. The scope was then withdrawn back into the stomach and retroflexed and the patient apparently has had a and Carlotta fundoplication, which appears to be intact. The fundus appeared to be within normal limits. Several hyperplastic-appearing polyps were noted in the body of the stomach and somewhat partially excised with cold biopsy forceps. The scope was then straightened out, it was subsequently withdrawn. The patient tolerated procedure well. IMPRESSION: 1. Normal esophagus. 2. Status post fundoplication, intact. 3. Gastritis, biopsied. Biopsies sent to stain for H pylori. 4. Gastric polyps, body, hyperplastic-appearing, some partially excised with the cold biopsy forceps. 5. Approximately 5 mm submucosal lesion incisura ? lipoma biopsied. 6. Antral nodule, biopsied. 7. Rule out sprue. PLAN: Follow up histology. Continue Dexilant 60 mg one p.o. a.c. b.i.d. Increase Carafate 1 g p.o. a.c. t.i.d. and at bedtime. Suleman Ugalde MD [facility] [place]/MODL /[id number] cc: Christophe Ugalde MD
== END | disposition home or self-care (01) ==
LOC: OR 09:58
PROVIDERS: ATTEND Internal Medicine Gastroenterology
DX: K29.70 Gastritis, unspecified, without bleeding (principal); K31.7 Polyp of stomach and duodenum; K20.8 Other esophagitis; K31.89 Other diseases of stomach and duodenum; I25.10 Atherosclerotic heart disease of native coronary artery without angina pectoris; E11.9 Type 2 diabetes mellitus without complications; I10 Essential (primary) hypertension; K76.0 Fatty (change of) liver, not elsewhere classified; J30.1 Allergic rhinitis due to pollen; M46.90 Unspecified inflammatory spondylopathy, site unspecified; Z88.0 Allergy status to penicillin; Z88.2 Allergy status to sulfonamides; Z01.810 Encounter for preprocedural cardiovascular examination; Z01.812 Encounter for preprocedural laboratory examination; Z11.59 Encounter for screening for other viral diseases; Z79.82 Long term (current) use of aspirin; Z68.37 Body mass index [BMI] 37.0-37.9, adult; Z98.890 Other specified postprocedural states; Z95.5 Presence of coronary angioplasty implant and graft
CPT/HCPCS: 36415 ×2; 43239; 82948; 85025; 87635; 88305; 88312; 93005; J2704

== ENCOUNTER 2021-04-24 11:38 | Emergency (ER) | payer MEDICARE, OTHER ==
[~2021-04-24] VITALS: Ht 188 cm; Wt 126.1 kg
[~2021-04-24 11:38] MED LIST changes: -ETOMIDATE 2 MG/ML 10 ML INJ IV ONE; -PANTOPRAZOLE 40 MG 10ML VIAL ONE; -PROPOFOL IV EMULSION 10 MG/ML 20 ML VIAL ONE
[2021-04-24] MEDS ORDERED: ONDANSETRON HCL INJ 2MG/ML 2ML 2 MG/ML VIAL IV STA (12:11)
[2021-04-24] MEDS ORDERED: MORPHINE SULFATE INJ 4 MG/ML INJ 1ML IV STA (12:11)
[2021-04-24] MEDS ORDERED: SODIUM CHLORIDE 0.9% 500ML 500 ML IV ONE (12:15)
[2021-04-24 12:55] LABS: BASOPHILS # (AUTO) 0.1 (0.0-0.1); BASOPHILS % 0.8 % (0.0-1.0); EOSINOPHILS # (AUTO) 0.3 (0.0-0.4); EOSINOPHILS % 2.7 % (0.0-6.0); HEMATOCRIT 42.9 % (38.2-49.6); HEMOGLOBIN 14.3 g/dL (14.0-18.0); LYMPHOCYTES # (AUTO) 3.6 (1.0-3.2); LYMPHOCYTES % 36.3 % (18.0-39.1); MEAN CORPUSCULAR HGB CONC 33.3 g/dL (31-35); MEAN CORPUSCULAR VOLUME 92.9 fL (81-99); MONOCYTES # (AUTO) 0.9 (0.2-0.8); MONOCYTES % 9.2 % (4.4-11.3); NEUTROPHILS % 50.6 % (38.7-80.0); PLATELET COUNT 278 x10e3/uL (140-360); RED BLOOD COUNT 4.62 x10e6/uL (4.3-5.7); RED CELL DISTRIBUTION WIDTH 13.7 % (11.7-14.4)
[2021-04-24 12:57] LABS: CLARITY,URINE CLEAR (CLEAR); COLOR,URINE YELLOW (YELLOW); KETONES,URINE NEGATIVE (NEGATIVE); LEUKOCYTE ESTERASE ,URINE NEGATIVE (NEGATIVE); NITRITE,URINE NEGATIVE (NEGATIVE); PROTEIN,URINE DIPSTICK NEGATIVE (NEGATIVE)
[2021-04-24 12:58] LABS: URINE UROBILINOGEN 0.2 mg/dL (0.2 - 1)
[2021-04-24 13:09] LABS: BACTERIA,URINE RARE /HPF; EPITHELIAL CELLS,URINE FEW /LPF; RBC,URINE 0-5 /HPF (0-5); WBC,URINE (MAN) 0-5 /HPF (0-5)
[2021-04-24 13:18] LABS: ALBUMIN 3.9 g/dL (3.5-5.0); ALBUMIN/GLOBULIN RATIO 1.1 (0.8-2.0); ANION GAP 13.9 mmol/L (8-16); CALCIUM 9.6 mg/dL (8.4-10.2); CREATININE, SERUM 1.31 mg/dL (0.72-1.25); POTASSIUM 3.9 mmol/L (3.5-5.1)
== END 2021-04-24 17:09 | disposition home or self-care (01) ==
LOC: ER 12:13
DX: M54.9 Dorsalgia, unspecified (principal); I10 Essential (primary) hypertension; E11.9 Type 2 diabetes mellitus without complications; M1A.9XX0 Chronic gout, unspecified, without tophus (tophi); K21.9 Gastro-esophageal reflux disease without esophagitis; Z87.442 Personal history of urinary calculi
CPT/HCPCS: 36415; 74176; 80053; 81001; 85025; 87086; 99284; C9113; J2270; J2405; J7040

== ENCOUNTER 2021-05-06 16:25 | Emergency (ER) | payer MEDICARE ==
[~2021-05-06] VITALS: Ht 188 cm; Wt 126.1 kg
[2021-05-06 18:58] LABS: BASOPHILS # (AUTO) 0.1 (0.0-0.1); BASOPHILS % 0.7 % (0.0-1.0); EOSINOPHILS # (AUTO) 0.3 (0.0-0.4); EOSINOPHILS % 2.7 % (0.0-6.0); HEMATOCRIT 44.9 % (38.2-49.6); HEMOGLOBIN 14.6 g/dL (14.0-18.0); LYMPHOCYTES # (AUTO) 3.8 (1.0-3.2); LYMPHOCYTES % 33.9 % (18.0-39.1); MEAN CORPUSCULAR HEMOGLOBIN 30.7 pg (28-32); MEAN CORPUSCULAR HGB CONC 32.5 g/dL (31-35); MEAN CORPUSCULAR VOLUME 94.3 fL (81-99); MONOCYTES % 8.8 % (4.4-11.3); NEUTROPHILS % 53.4 % (38.7-80.0); PLATELET COUNT 294 x10e3/uL (140-360); RED BLOOD COUNT 4.76 x10e6/uL (4.3-5.7); RED CELL DISTRIBUTION WIDTH 13.2 % (11.7-14.4)
[2021-05-06 19:00] LABS: CLARITY,URINE SL CLOUDY (CLEAR); COLOR,URINE AMBER (YELLOW); KETONES,URINE NEGATIVE (NEGATIVE); LEUKOCYTE ESTERASE ,URINE NEGATIVE (NEGATIVE); NITRITE,URINE POSITIVE (NEGATIVE); PROTEIN,URINE DIPSTICK NEGATIVE (NEGATIVE)
[2021-05-06 19:01] LABS: URINE UROBILINOGEN 0.2 mg/dL (0.2 - 1)
[2021-05-06 19:15] LABS: ANION GAP 14.6 mmol/L (8-16); CREATININE, SERUM 1.46 mg/dL (0.72-1.25); POTASSIUM 4.6 mmol/L (3.5-5.1)
[2021-05-06] MEDS ORDERED: DEXAMETHASONE 4 MG TAB PO STA (19:20)
[2021-05-06] MEDS ORDERED: KETOROLAC TROMETHAMINE 30 MG/ML VIAL IV STA (19:20)
[2021-05-06] MEDS ORDERED: ACETAMINOPHEN 325 MG TAB PO ONE (19:30)
[2021-05-06] MEDS ORDERED: LIDOCAINE 4% PATCH TP SCH (19:45)
[2021-05-06] MEDS ORDERED: LIDOPATCH1 EACH TOP (20:14)
[2021-05-06] MEDS ORDERED: PYRIDIUM200 MG PO (20:15)
== END 2021-05-06 20:27 | disposition home or self-care (01) ==
LOC: ER 18:40
DX: M54.5 Low back pain (principal); I10 Essential (primary) hypertension; E11.9 Type 2 diabetes mellitus without complications; K21.9 Gastro-esophageal reflux disease without esophagitis; M10.9 Gout, unspecified
CPT/HCPCS: 36415; 80048; 81001; 85025; 99284; J8540

== ENCOUNTER → 2022-11-29 | Outpatient (CLI) | payer MEDICARE ==
[~2022-11-29] MED LIST changes: +LIDOPATCH1 EACH TOP; +PYRIDIUM200 MG PO
== END ==
LOC: US 09:33
PROVIDERS: ATTEND Internal Medicine Gastroenterology
DX: R16.0 Hepatomegaly, not elsewhere classified (principal)
CPT/HCPCS: 76705

== ENCOUNTER → 2023-11-19 | Outpatient (REF) | payer MEDICARE | LOC: RAD 15:26 | PROVIDERS: ATTEND Internal Medicine | DX: M79.671 Pain in right foot (principal); M79.672 Pain in left foot ==

== ENCOUNTER → 2023-11-23 | Outpatient (REF) | payer MEDICARE | LOC: RAD 13:28 | PROVIDERS: ATTEND Internal Medicine | DX: R76.12 Nonspecific reaction to cell mediated immunity measurement of gamma interferon antigen response without active tuberculosis (principal) | CPT/HCPCS: 71046 ==